=== PATIENT | male | born 1980 ===

== ENCOUNTER 2021-06-06 12:06 | Emergency (ER) | payer MEDICARE, MEDICAID ==
[~2021-06-06] VITALS: Ht 177.8 cm; Wt 99.8 kg
[2021-06-06 12:50] LABS: Basophils # (auto) 0 10 ^3/uL (0-0.2); Basophils % (auto) 0.2 % (0.0-2.0); Eosinophils # (auto) 0 10 ^3/uL (0-0.8); Eosinophils % (auto) 0.4 % (0.0-7.0); Hematocrit 44.5 % (41.0-53.0); Hemoglobin 14.9 g/dL (13.5-17.5); Lymphocytes # (auto) 1.1 10 ^3/uL (0.4-5.4); Lymphocytes % (auto) 21.7 % (10.0-50.0); Mean Corpuscular Hemoglobin 29.4 pg (28.0-32.0); Mean Corpuscular Hgb Conc. 33.4 g/dL (32.0-36.0); Monocytes # (auto) 0.3 10 ^3/uL (0-1.3); Monocytes % (auto) 6.1 % (0.0-12.0); Neutrophils # (auto) 3.7 10 ^3/uL (1.6-8.6); Neutrophils % (auto) 71.6 % (37.0-80.0); Nucleated Red Blood Cells % 0.1 %; Red Blood Cells 5.06 10^6/uL (4.5-5.90); White Blood Cell 5.1 10^3/uL (4.4-10.8)
[2021-06-06 12:54] LABS: Urine Bacteria FEW /hpf (None Seen); Urine Blood TRACE /uL (Negative); Urine Mucus FEW (None Seen); Urine WBC 2 /hpf (0 - 3)
[2021-06-06 13:12] LABS: Calcium 9.2 mg/dL (8.5-10.1); Potassium 3.3 mmol/L (3.5-5.1)
[2021-06-06 13:15] LABS: Bilirubin, Total 0.6 mg/dL (0.2-1.0); Total Protein 8.4 g/dL (6.4-8.2)
[2021-06-06] MEDS ORDERED: LEVE100012 PO (13:39)
[2021-06-06] MEDS ORDERED: RISP0.5T45 PO (13:39)
[2021-06-06] MEDS ORDERED: DIVA500T2 PO (13:39)
[2021-06-06] MEDS ORDERED: LURA80TA PO (13:39)
[2021-06-06 14:36] VITALS: BP 114/61
== END 2021-06-06 15:02 | disposition home or self-care (01) ==
LOC: ER 12:06 → EDBD 12:06 → ER 15:02
DX: R56.9 Unspecified convulsions (principal); G80.9 Cerebral palsy, unspecified; Z79.899 Other long term (current) drug therapy
CPT/HCPCS: 36415; 70450; 80053; 81001; 85025; 96365; 96366; 99284; J1953; J7060